=== PATIENT | female | born 1955 | race Caucasian/White ===

== ENCOUNTER 2016-09-30 22:03 | Emergency (ER) | payer OTHER ==
[~2016-09-30 22:03] MED LIST: ALBUTEROL0.09 MG/A1 INH; AUGMENTIN 875-1 EACH PO; CLARITIN10 M1 PO; COMBIVENT RESPI1 SPR INH; COMBIVENT1 ARO INH; FLONASE ALLERG9.9 ML NAS; FLONASE120 SPRAY/ NAS; LEVOTHYROXINE175 MCG PO; LITHIUM CARBON300 M3 PO; LITHIUM CARBON300 M4 PO; NEURONTIN300 M1 PO; PREDNICOT20 MG PO; PREDNISOLO15 MG/5 M4 PO; PREDNISONE 20MG20 MG PO; PREDNISONE20 MG PO; ZITHROMAX Z PA250 MG PO; ZITHROMAX Z-PA250 M1 PO
--- NOTE | 2016-09-30 22:58 | ED DYSPNEA/ASTHMA COMPLAINT ---
History of Present Illness General Chief Complaint: Dyspnea (COPD, CHF, Other) Stated Complaint: SOB Source: patient, old records Exam Limitations: no limitations Vital Signs & Intake/Output Vital Signs & Intake/Output Vital Signs Date Time Temp Pulse Resp B/P Pulse O2 O2 Flow FiO2 Ox Delivery Rate 09/30 2346 98 09/30 2216 97.1 62 16 123/78 98 Room Air Allergies Coded Allergies: NO KNOWN ALLERGIES (05/04/16) Reconcile Medications Albuterol Sulfate (Albuterol Sulfate Hfa) 90 MCG HFA.AER.AD 2 PUFF INH Q4-6 PRN PRN SHORTNESS OF BREATH 90 MCG PER PUFF Fluticasone Propionate (Flonase Allergy Relief) 9.9 ML SPRAY.SUSP 2 SPRAY CLARICE DAILY SINUS CONGESTION Gabapentin (Neurontin) 300 MG CAPSULE 1 CAP PO DAILY PSY (Reported) IPRATROPIUM/ALBUTEROL SULFATE (Combivent Respimat Inhal [place]) 20 MCG-100 MCG/ ACTUATION MIST.INHAL 1 Actuation INH Q6 COPD IPRATROPIUM/ALBUTEROL SULFATE (Combivent Inhaler) 1 SHALINI SHALINI 2-4 INH INH Q6P PRN COPD Levothyroxine Sodium 0.175 MG TAB 0.175 MG PO DAILY THYROID (Reported) [place] Carbonate 300 MG CAPSULE 3 CAP PO QHS BIPOLAR (Reported) Prednisone 20 MG TABLET 1 TAB PO BID copd Triage Note: TRIAGE; PT TO ED C/O SOB WHILE SHE WAS LAYING WATCHING TV. HAS A HX OF COPD, DENIES OXYGEN USE AT HOME. PT DENIES ANY CP, OR N/V. STATES THE SOB FEELS A LITTLE BETTER NOW WHILE SITTING UP, RA SAT 98%. Triage Nurses Notes Reviewed? yes Onset: Just prior to arrival Duration: minute(s):, better, constant Timing: recent history Severity: moderate Activities at Onset: rest Prior Episodes/Possible Cause: chronic episodes Modifying Factors: Improves With: rest. Worsens With: movement. Associated Symptoms: anxiety, cough LMP (ages 10-50): post menopausal : No Patient currently breastfeeds: No HPI: Prior to admission patient complains of sudden shortness breath improved with MDI. She and her are beginning to quit smoking. She denies fever chills nausea vomiting diarrhea abdominal pain chest pain headache dysuria rash bleeding. Past History Travel History Traveled to [place] past 21 day No Medical History Any Pertinent Medical History? 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 No Review of Systems Review of Systems Constitutional: Reports: no symptoms. EENTM: Reports: no symptoms. Respiratory: Reports: see HPI, short of breath. Cardiovascular: Reports: no symptoms. GI: Reports: no symptoms. Genitourinary: Reports: no symptoms. Musculoskeletal: Reports: no symptoms. Skin: Reports: no symptoms. Neurological/Psychological: Reports: no symptoms. Hematologic/Endocrine: Reports: no symptoms. Immunologic/Allergic: Reports: no symptoms. All Other Systems: Reviewed and Negative Physical Exam Physical Exam General Appearance: well developed/nourished, alert, awake, anxious, mild distress, obese Head: atraumatic, normal appearance Eyes: Bilateral: normal appearance, PERRL, EOMI. Ears, Nose, Throat: normal pharynx, normal ENT inspection Neck: normal inspection, supple, full range of motion, no midline tenderness Respiratory: chest non-tender, no respiratory distress, quiet respiration, lungs clear, decreased breath sounds Cardiovascular: regular rate/rhythm, normal peripheral pulses, norml femoral pulses equa Peripheral Pulses: 4+ carotid (R), 4+ carotid (L) Gastrointestinal: normal bowel sounds, soft, non-tender, no organomegaly Extremities: normal inspection, normal capillary refill, normal range of motion, no edema Neurologic/Psych: no motor/sensory deficits, awake, alert, oriented x 3, normal 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 No Severe Sepsis Present: No Septic Shock Present: No Progress Differential Diagnosis: asthma, COPD, pneumonia Plan of Care: Orders Procedure Date/time Status EKG 09/30 2204 Active Diagnostic Imaging: Viewed by Me: Radiology Read. Discussed w/RAD: Radiology Read. CXR Impression: no acute abnormality Initial ED EKG: normal axis, normal intervals, normal p-waves, normal QRS complex, normal sinus rhythm, no ST T wave changes Departure Departure Time of Disposition: 2204 Disposition: HOME OR SELF CARE Condition: Stable Clinical Impression Primary Impression: COPD exacerbation Referrals: JULISSA OSUNA APRN (PCP/Family) Departure Forms: Customer Survey General Discharge Information Prescriptions: Current Visit Scripts Prednisone 1 TAB PO BID #10 TAB Critical Care Note Critical Care Note Critical Care Time: non-applicable
--- NOTE | 2016-09-30 23:08 | RADIOLOGY REPORT ---
EXAMINATION: XR CHEST CLINICAL INFORMATION: Shortness of breath. COMPARISON: Chest x-ray 05/04/2016 TECHNIQUE: PA and lateral views of the chest were obtained. FINDINGS: Lungs are clear. No pulmonary vascular congestion. No infiltrate or pleural effusion. The heart size is normal. The cardiac and mediastinal contours are normal. There are calcifications of the thoracic aorta. There are multilevel degenerative changes of dorsal spine. IMPRESSION: Unremarkable examination.
[2016-10-01] MEDS ORDERED: PREDNISONE20 M1 PO (00:01)
[2016-10-01 00:39] VITALS: BP 120/69
== END 2016-10-01 00:41 ==
LOC: ERH 22:03
DX: J44.1 Chronic obstructive pulmonary disease with (acute) exacerbation (principal); Z87.891 Personal history of nicotine dependence
CPT/HCPCS: 1263; 1395; 93005; 93010

== ENCOUNTER 2016-12-04 11:33 | Emergency (ER) | payer OTHER ==
[~2016-12-04] VITALS: Ht 152.4 cm; Wt 81.6 kg
[~2016-12-04 11:33] MED LIST changes: +PREDNISONE20 M1 PO
[2016-12-04 11:39] VITALS: BP 139/75
[2016-12-04] MEDS ORDERED: SYMBICORT 16010.2 GM INH (12:19)
--- NOTE | 2016-12-04 12:25 | ED DYSPNEA/ASTHMA COMPLAINT ---
History of Present Illness General Chief Complaint: Dyspnea (COPD, CHF, Other) Stated Complaint: DIFFICULTY BREATHING Source: patient Exam Limitations: no limitations Vital Signs & Intake/Output Vital Signs & Intake/Output Vital Signs Date Time Temp Pulse Resp B/P Pulse O2 O2 Flow FiO2 Ox Delivery Rate 12/04 1244 99 12/04 1139 97.0 96 18 139/75 95 Room Air Allergies Coded Allergies: NO KNOWN ALLERGIES (05/04/16) Reconcile Medications Albuterol Sulfate (Proair Hfa) 90 MCG HFA.AER.AD 2-4 INH INH Q6P PRN ASTHMA Budesonide/Formoterol Fumarate (Symbicort 160-4.5 Mcg Inhaler) 160 MCG-4.5 MCG/ ACTUATION HFA.AER.AD 2 PUF INH BID BREATHING PROBLEMS (Reported) Gabapentin (Neurontin) 300 MG CAPSULE 1 CAP PO DAILY PRN PSY (Reported) Levothyroxine Sodium 175 MCG TABLET 1 TAB PO DAILY AC THYROID (Reported) [place] Carbonate 300 MG CAPSULE 3 CAP PO QHS BIPOLAR (Reported) Prednisone (Deltasone) 20 MG TABLET 3 TAB PO DAILY COPD BEGIN TOMORROW Triage Note: PT STATES "MY LUNGS FEEL LIKE THERE FILLING UP WITH FLUID". PT STATES SHE HAS COPD. PT COUGHING BUT STATES COUGH IS DRY. Triage Nurses Notes Reviewed? yes HPI: Patient presents for evaluation of chest tightness and shortness of breath that began gradually about 2 days ago. Patient states she was simply performing her usual daily activities upon onset. She states she is also experiencing a bit of hoarseness in her voice and a dry nose for which she has been using saline nasal sprays. She also has had some sneezing and a mild nonproductive cough and occasional wheezing. She denies any associated fever or cold symptoms. She has had similar symptoms with prior episodes of bronchitis. She used her Symbicort inhaler without relief. She does admit to current cigarette smoking but only 3 cigarettes per day. She does have a past medical history of COPD. She also states that she had a recent cardiac catheterization by Dr. David that was apparently okay. Past History Travel History Traveled to [place] past 21 day No Medical History Any Pertinent Medical History? 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 No Review of Systems Review of Systems Constitutional: Reports: no symptoms. EENTM: Reports: no symptoms. Respiratory: Reports: see HPI. Cardiovascular: Reports: chest pain. GI: Reports: no symptoms. Genitourinary: Reports: no symptoms. Musculoskeletal: Reports: no symptoms. Skin: Reports: no symptoms. Neurological/Psychological: Reports: no symptoms. Hematologic/Endocrine: Reports: no symptoms. Immunologic/Allergic: Reports: no symptoms. All Other Systems: Reviewed and Negative Physical Exam Physical Exam Respiratory: normal breath sounds (SEE), SEE BELOW Comments: Gen.: Well-nourished, well-developed, no acute respiratory distress. Head: Normocephalic, atraumatic. Eyes: Normal inspection bilaterally Ears: Normal inspection bilaterally Nose: Normal inspection Throat/mouth : Moist mucosa Neck: Supple, full range of motion, no goiter Heart: Regular rate and rhythm, no murmurs rubs or gallops Lungs: Clear to auscultation bilaterally with diminished air entry Chest: Nontender Back: Normal range of motion Abdomen: Soft, nontender, nondistended, normal bowel sounds Extremities: Normal range of motion grossly, equal radial pulses, no cyanosis clubbing or edema Neurologic: Cranial nerves grossly intact, speech is clear Skin: warm and dry Psychiatric: Calm, cooperative, no apparent delusions or hallucinations Core Measures ACS in differential dx? No Severe Sepsis Present: No Septic Shock Present: No Progress Differential Diagnosis: asthma, bronchitis, CHF, COPD, pneumonia Plan of Care: Orders Procedure Date/time Status XRY-CHEST XRAY, PA AND LATERAL 12/04 1224 Active Current Medications Sig/Kaley Start time Last Medication Dose Stop Time Status Admin Albuterol Sulfate 3 ML ONCE ONE 12/04 1230 UNVr (Proventil) 12/04 1231 Ipratropium [place] 2.5 ML ONCE ONE 12/04 1230 UNVr (Atrovent) 12/04 1231 Initial ED EKG: none Comments: Patient states that since she just had a cardiac catheterization study that did not show any coronary artery disease, she does not feel an evaluation for possible heart condition is warranted. She agrees to a chest x-ray and nebulizer treatment. I will reevaluate at that time. 12/04/2016 1:27:28 PM I have updated Darling on her chest x-ray report. Reevaluation of the lungs reveals improved air entry. pt stable for outpt managment. Departure Departure Disposition: HOME OR SELF CARE Condition: Stable Clinical Impression Primary Impression: COPD exacerbation Referrals: JULISSA OSUNA APRN (PCP/Family) Additional Instructions: Albuterol as prescribed for difficulty breathing. Prednisone as prescribed. Tried to quit smoking entirely. Follow-up with your primary care physician on Tuesday for reevaluation. Return if any concerns or sudden worsening. Departure Forms: Customer Survey General Discharge Information Prescriptions: Current Visit Scripts Albuterol Sulfate (Proair Hfa) 2-4 INH INH Q6P PRN ASTHMA #1 INHAL Prednisone (Deltasone) 3 TAB PO DAILY #12 TAB BEGIN TOMORROW Critical Care Note Critical Care Note Critical Care Time: non-applicable
--- NOTE | 2016-12-04 13:00 | RADIOLOGY REPORT ---
EXAMINATION: XR CHEST CLINICAL INFORMATION: Dyspnea and cough. COMPARISON: Chest 09/30/2016. TECHNIQUE: 2 views of the chest were obtained. FINDINGS: No significant abnormality is noted involving the heart, lungs, mediastinum, bony thorax or soft tissues. IMPRESSION: Unremarkable chest examination.
[2016-12-04] MEDS ORDERED: PROAIR HFA8.5 GM INH (13:26)
[2016-12-04] MEDS ORDERED: DELTASONE20 MG PO (13:26)
== END 2016-12-04 13:39 ==
LOC: ERH 11:33
DX: J44.1 Chronic obstructive pulmonary disease with (acute) exacerbation (principal); Z72.0 Tobacco use
CPT/HCPCS: 1263

== ENCOUNTER 2017-09-10 13:38 | Emergency (ER) | payer OTHER, MEDICARE ==
[~2017-09-10] VITALS: Ht 152.4 cm; Wt 81.6 kg
[~2017-09-10 13:38] MED LIST changes: +DELTASONE20 MG PO; +PROAIR HFA8.5 GM INH; +SYMBICORT 16010.2 GM INH
[2017-09-10 13:46] VITALS: BP 146/81
== END 2017-09-10 14:49 | disposition admitted as inpatient to this hospital (09) ==
LOC: ERH 13:38
DX: S00.12XA Contusion of left eyelid and periocular area, initial encounter (principal)

== ENCOUNTER 2017-12-08 22:38 | Emergency (ER) | payer OTHER, MEDICARE ==
[~2017-12-08] VITALS: Ht 152.4 cm; Wt 81.6 kg
[2017-12-08 22:55] VITALS: BP 117/66
--- NOTE | 2017-12-08 23:24 | RADIOLOGY REPORT ---
EXAMINATION: XR CHEST CLINICAL INFORMATION: Bronchitis COMPARISON: 12/04/2016 TECHNIQUE: 2 views of the chest were obtained. FINDINGS: Question early right middle lobe developing infiltrate. Left lung is grossly clear. The heart size is normal. The hilar structures do not appear enlarged. There is no effusion. IMPRESSION: Question Developing right middle lobe infiltrate
[2017-12-11] MEDS ORDERED: MEDROL4 M2 PO ×2 (19:26→19:48)
[2017-12-11] MEDS ORDERED: PROAIR HFA8.5 GM INH ×2 (19:26→19:48)
[2017-12-11] MEDS ORDERED: ZITHROMAX250 M2 PO (19:26)
[2017-12-11] MEDS ORDERED: GUAIFEN-CODEIN118 M1 PO ×2 (19:26→19:48)
[2017-12-11] MEDS ORDERED: AZITHROMYCIN250 M1 PO (19:48)
== END 2017-12-09 01:08 | disposition admitted as inpatient to this hospital (09) ==
LOC: ERH 22:38
DX: R05 Cough (principal); F17.200 Nicotine dependence, unspecified, uncomplicated
CPT/HCPCS: 71046; 99281

== ENCOUNTER 2018-04-05 22:37 | Emergency (ER) | payer OTHER, MEDICARE ==
[~2018-04-05] VITALS: Ht 152.4 cm; Wt 80.7 kg
[~2018-04-05 22:37] MED LIST changes: +AZITHROMYCIN250 M1 PO; +GUAIFEN-CODEIN118 M1 PO; +LEVAQUIN500 M1 PO; +MEDROL4 M2 PO; +PREDNISONE10 M2 PO; +PROVENTIL HFA6.7 GM INH; +ZITHROMAX250 M2 PO
--- NOTE | 2018-04-05 23:31 | ED GENERAL ADULT ---
History of Present Illness General Chief Complaint: Dyspnea (COPD, CHF, Other) Stated Complaint: DIFF BREATHING Source: patient Exam Limitations: no limitations Vital Signs & Intake/Output Vital Signs & Intake/Output Vital Signs Date Time Temp Pulse Resp B/P B/P Pulse O2 O2 Flow FiO2 Mean Ox Delivery Rate 04/06 0006 98 04/05 2242 98.6 55 18 123/64 97 Room Air ED Intake and Output 04/06 0000 04/05 1200 Intake Total Output Total Balance Patient 178 lb Weight Allergies Coded Allergies: NO KNOWN ALLERGIES (05/04/16) Reconcile Medications Albuterol Sulfate (Proair Hfa) 90 MCG HFA.AER.AD 2-4 INH INH Q6P PRN ASTHMA Albuterol Sulfate (Proair Hfa) 90 MCG HFA.AER.AD 2 PUF INH Q4-6 PRN PRN WHEEZING Albuterol Sulfate (Proventil Hfa) 90 MCG HFA.AER.AD 2 PUF INH Q4 PRN SOB Azithromycin 250 MG TABLET 1 DP PO AD BRONCHITIS 2 the first day followed by 1 for days 2-5 Budesonide/Formoterol Fumarate (Symbicort 160-4.5 Mcg Inhaler) 160 MCG-4.5 MCG/ ACTUATION HFA.AER.AD 2 PUF INH BID BREATHING PROBLEMS (Reported) Codeine Phosphate/Guaifenesi (Guaifen-Codeine 100-10 MG/5 Ml) 10 MG-100 MG/5 ML LIQUID 10 ML PO Q6HR PRN COUGH Gabapentin (Neurontin) 300 MG CAPSULE 1 CAP PO DAILY PRN PSY (Reported) Levofloxacin (Levaquin) 500 MG TABLET 750 MG PO DAILY PNA Levothyroxine Sodium 175 MCG TABLET 1 TAB PO DAILY AC THYROID (Reported) [place] Carbonate 300 MG CAPSULE 3 CAP PO QHS BIPOLAR (Reported) Methylprednisolone. (Medrol) 4 MG TAB.DS.PK 1 DP PO AD BRONCHITIS 6 on day 1 then reduce by one tablet daily until gone Prednisone (Deltasone) 20 MG TABLET 3 TAB PO DAILY COPD BEGIN TOMORROW Prednisone 10 MG TABLET 6 TAB PO DAILY COPD Triage Note: 62F TO ED FOR CONTINUED DIFF BREATHING, +1PPD SMOKER X40 YEARS. SEEN A FEW WEEKS AGO FOR SAME. HAS RESCUE INHALER BUT DID NOT USE IT. FEELS LIKE MUCOUS CANNOT BE EXPECTORATED X1 DAY. AFEBRILE. ALSO REPORTS HEADACHE TO BACK OF HEAD. DENIES VISION CHANGES. DENIES CP/PALPITATIONS. NO ACUTE RESP DISTRESS OBSERVED Triage Nurses Notes Reviewed? yes Onset: Gradual Duration: day(s): Timing: constant HPI: 62-year-old female with a history of COPD (not on any supplemental oxygen), hypothyroid, bipolar disorder presenting with shortness of breath and a nonproductive cough 1 day. Patient was treated for pneumonia with Levaquin a few weeks ago, reports that she finished the entire antibiotic course as prescribed. She was feeling better and her symptoms had resolved until yesterday. Has been using her albuterol inhaler without relief. Denies fevers, chest pain, nasal congestion, rhinorrhea, sputum. Patient is currently a 1 pack per day smoker. The triage note mentions that the patient endorsed a headache, but she is currently declining any headache to me at this time. Past History Travel History Traveled to [place] past 21 day No Medical History Any Pertinent Medical History? 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 No Review of Systems Review of Systems Constitutional: Reports: no symptoms. EENTM: Reports: no symptoms. Respiratory: Reports: see HPI. Cardiovascular: Reports: no symptoms. GI: Reports: no symptoms. Genitourinary: Reports: no symptoms. Musculoskeletal: Reports: no symptoms. Skin: Reports: no symptoms. Neurological/Psychological: Reports: no symptoms. Hematologic/Endocrine: Reports: no symptoms. Immunologic/Allergic: Reports: no symptoms. All Other Systems: Reviewed and Negative Physical Exam Physical Exam General Appearance: well developed/nourished, no apparent distress, alert, awake , comfortable Head: atraumatic, normal appearance Eyes: Bilateral: normal appearance. Ears, Nose, Throat: normal ENT inspection Neck: normal inspection Respiratory: no respiratory distress, trace end expiratory wheezing Cardiovascular: regular rate/rhythm Gastrointestinal: soft, non-tender Back: normal inspection Extremities: normal inspection Neurologic/Psych: awake, alert, oriented x 3, normal gait, normal mood/affect Skin: intact, normal color, warm/dry Core Measures ACS in differential dx? No CVA/TIA Diagnosis: No Sepsis Present: No Sepsis Focused Exam Completed? No Progress Differential Diagnoses I considered the following diagnoses in my evaluation of the patient: [URI versus bronchitis versus pneumonia versus COPD exacerbation, will concern for ACS versus PE] Plan of Care: Orders Procedure Date/time Status EKG 04/05 9011 Active EKG is nonischemic Chest x-ray is unremarkable Patient reports significant improvement in her symptoms after 1 DuoNeb Patient was recently on a course of steroids for a COPD exacerbation during her pneumonia. Patient had very minimal wheezing on exam, is well-appearing, no tachypnea, no hypoxia, no signs of respiratory distress. I do not feel that she is having an acute COPD exacerbation, and do not believe that she needs another course of steroids so soon after her last course. Patient is instructed to follow-up with her primary care provider tomorrow for reevaluation. Counseled on supportive care and strict return precautions. Initial ED EKG: rhythm (sinus jhonny to 51) Departure Departure Disposition: HOME OR SELF CARE Condition: Stable Clinical Impression Primary Impression: Shortness of breath Referrals: Dede Lyle APRN (PCP/Family) Additional Instructions: Use your albuterol inhaler as needed. Follow-up with your primary care provider for reevaluation. Return to the emergency department for any new or worsening symptoms. Departure Forms: Customer Survey General Discharge Information Critical Care Note Critical Care Note Critical Care Time: non-applicable
--- NOTE | 2018-04-06 00:24 | RADIOLOGY REPORT ---
EXAMINATION: XR CHEST CLINICAL INFORMATION: Cough and shortness of breath COMPARISON: 03/19/2018 TECHNIQUE: 2 views of the chest were obtained. FINDINGS: Lung volumes are symmetric. No focal consolidation is seen. No evidence of pneumothorax, pleural effusion, or pulmonary edema. The cardiomediastinal contour is unremarkable. No acute osseous findings are seen. IMPRESSION: No acute cardiopulmonary findings.
[2018-04-06 00:42] VITALS: BP 120/66
== END 2018-04-06 00:44 ==
LOC: ERH 22:37
DX: R06.02 Shortness of breath (principal); R05 Cough
CPT/HCPCS: 1263; 1395; 71046; 93005; 93010